=== PATIENT | female | born 1995 | race Caucasian/White ===

== ENCOUNTER → 2016-04-22 | Outpatient (CLI) | payer BC ==
--- NOTE | 2016-04-22 16:15 | DIAGNOSTIC IMAGING REPORT ---
SACRUM COCCYX MIN 2 VIEWS CLINICAL HISTORY: SACRAL BACK PAIN pain COMPARISON STUDY: None FINDINGS: Negative study IMPRESSION: Negative study Electronically signed by: Hector Thomason M.D. 04/22/2016 4:14 PM Dictated Date/Time: 04/22/2016 4:13 PM
== END | disposition home or self-care (01) ==
LOC: C.RAD1850 15:59
PROVIDERS: ATTEND Student in an Organized Health Care Education/Training Program
DX: M53.3 Sacrococcygeal disorders, not elsewhere classified (principal)

== ENCOUNTER → 2016-10-15 | Outpatient (CLI) | payer BC ==
--- NOTE | 2016-10-15 16:27 | DIAGNOSTIC IMAGING REPORT ---
PELVIC ULTRASOUND CLINICAL HISTORY: Irregular periods. COMPARISON STUDY: No previous studies for comparison. FINDINGS: The uterus measures 6 x 3.4 x 4.9 cm. There are nabothian cysts within the cervix. Endometrium measures 9 mm in thickness. No uterine masses are identified. The right ovary measures 4.6 x 2.6 x 2.4 cm and the left ovary measures 2.7 x 1.6 x 3 cm. There was color flow within each ovary. Trace free fluid is noted. IMPRESSION: Unremarkable pelvic ultrasound. Electronically signed by: Rickie Ahmadi M.D. 10/15/2016 4:26 PM Dictated Date/Time: 10/15/2016 4:23 PM
== END | disposition home or self-care (01) ==
LOC: C.ULTR 15:22
PROVIDERS: ATTEND Nurse Practitioner Family
DX: N92.6 Irregular menstruation, unspecified (principal)